=== PATIENT | male | born 1985 | race Caucasian/White ===

== ENCOUNTER 2021-04-27 07:40 | Inpatient (IN) ==
[2021-04-27 08:29] LABS: Basophils # 0.1 K/mcL (0.0-0.2); Basophils % 0.5 %; Eosinophils # 0.2 K/mcL (0.0-0.6); Hematocrit 42.8 % (37.5-50.1); Hemoglobin 14.4 g/dL (12.9-16.9); Immature Granulocytes % 0.6 % (0-4); Lymphocytes % 14.9 %; Mean Corpuscular HGB Conc 33.6 g/dL (31.6-35.5); Mean Corpuscular Hemoglobin 32.5 pg (28.0-33.3); Mean Corpuscular Volume 96.6 fL (83.0-100.0); Mean Platelet Volume 9.3 fL (9.4-12.4); Monocytes # 1.1 K/mcL (0.0-1.3); Monocytes % 5.3 %; Neutrophils # 15.9 K/mcL (1.6-8.9); Platelet Count 295 K/mcL (140-400); Red Blood Count 4.43 M/mcL (4.19-5.50); Red Cell Distribution Width 12.7 % (11.5-14.5); Segmented Neutrophils % 77.7 %; White Blood Count 20.4 K/mcL (4.3-11.1)
[2021-04-27 08:37] LABS: Bilirubin,Urine Negative (Negative); Blood,Urine Negative (Negative); Clarity,Urine Clear (Clear); Color,Urine Light-Yellow (Yellow); Glucose,Urine (UA) Normal (Normal); Ketones,Urine Negative (Negative); Leukocyte Esterase,Urine Negative (Negative); Nitrite,Urine Negative (Negative); Protein,Urine Negative (Neg-Trace); Urobilinogen,Urine Normal (Normal)
[2021-04-27 08:41] LABS: Acetaminophen < 10 mcg/mL (10-20); BUN/Creatinine Ratio 9 (6-26); Blood Urea Nitrogen 9 mg/dL (6-20); Calcium 9.3 mg/dL (8.6-10.3); Carbon Dioxide 29 mEq/L (23-29); Chloride 103 mEq/L (98-107); Chol/HDL Ratio 4.7 (0-4.9); Cholesterol 182 mg/dL (< 200); Glucose 112 mg/dL (70-105); HDL Cholesterol 39 mg/dL (40-59); LDL Cholesterol,Calculated 127 mg/dL (< 100); Osmolality,Calculated 287 (280-300); Potassium 3.7 mEq/L (3.5-5.1); Salicylate < 2.5 mg/dL (15.0-30.0); Sodium 139 mEq/L (136-145); Triglycerides 78 mg/dL (< 150); eGFR For African Americans > 60 (> 60); eGFR For Non-African Americans > 60 (> 60)
[2021-04-27 08:58] LABS: Amphetamine Screen,Urine Negative ng/mL (Cutoff=1000); Barbiturate Screen,Urine Negative ng/mL (Cutoff=200)
[2021-04-27 09:00] LABS: Benzodiazepines Screen,Urine Negative ng/mL (Cutoff=300); Cannabinoid Screen,Urine Positive ng/mL (Cutoff = 50); Cocaine Screen,Urine Negative ng/mL (Cutoff= 300); Opiate Screen,Urine Negative ng/mL (Cutoff=300); Phencyclidine Screen,Urine Negative ng/mL (Cutoff=25)
[2021-04-27] MEDS ORDERED: Nicotine 21 MG PATCH.TD24 TD ONE (09:39)
[2021-04-27 10:18] LABS: Ethanol < 10 mg/dL (Less than 10)
[2021-04-27] MEDS ORDERED: 0.9 % Sodium Chloride 1,000 ML IVC ONE (10:48)
[2021-04-27 12:04] LABS: Estimated Average Glucose 117 mg/dl; Hemoglobin A1C 5.7 %
[2021-04-27 13:15] LABS: Basophils # 0.1 K/mcL (0.0-0.2); Basophils % 0.5 %; Eosinophils # 0.1 K/mcL (0.0-0.6); Eosinophils % 0.8 %; Immature Granulocytes % 0.6 % (0-4); Lymphocytes # 2.5 K/mcL (0.6-4.6); Lymphocytes % 19.2 %; Mean Corpuscular HGB Conc 34.2 g/dL (31.6-35.5); Mean Corpuscular Hemoglobin 33.1 pg (28.0-33.3); Mean Corpuscular Volume 96.7 fL (83.0-100.0); Mean Platelet Volume 9.4 fL (9.4-12.4); Monocytes # 0.6 K/mcL (0.0-1.3); Monocytes % 4.9 %; Neutrophils # 9.5 K/mcL (1.6-8.9); Platelet Count 265 K/mcL (140-400); Red Blood Count 3.93 M/mcL (4.19-5.50); Red Cell Distribution Width 12.8 % (11.5-14.5); White Blood Count 12.8 K/mcL (4.3-11.1)
[2021-04-27] MEDS ORDERED: Isovue-370 500 ML BOTTLE IVP ONE (13:43)
[2021-04-27] MEDS ORDERED: 0.9 % Sodium Chloride 1,000 ML IV ONE (15:51)
[2021-04-27] MEDS ORDERED: 0.9 % Sodium Chloride 1,000 ML ONE (15:52)
[2021-04-27 20:25] LABS: Adenovirus Not Detected (Not Detect); Bordetella Pertussis Not Detected (Not Detect); Chlamydophila pneumoniae Not Detected (Not Detect); Coronavirus 229E Not Detected (Not Detect); Coronavirus HKU1 Not Detected (Not Detect); Coronavirus NL63 Not Detected (Not Detect); Coronavirus OC43 Not Detected (Not Detect); Human Metapneumovirus Not Detected (Not Detect); Human Rhinovirus/Enterovirus Not Detected (Not Detect); Influenza A Subtype 2009 H1 Not Detected (Not Detect); Influenza B Not Detected (Not Detect); Mycoplasma pneumoniae Not Detected (Not Detect); Parainfluenza Virus 1 Not Detected (Not Detect); Parainfluenza Virus 2 Not Detected (Not Detect); Parainfluenza Virus 3 Not Detected (Not Detect); Parainfluenza Virus 4 Not Detected (Not Detect); Respiratory Syncytial Virus Not Detected (Not Detect); SARS-CoV-2 Not Detected (Not Detect)
[2021-04-27] MEDS ORDERED: Haloperidol Lactate 5 MG/ML VIAL IM PRN (20:41)
[2021-04-27] MEDS ORDERED: *HR* LORazepam 2 MG/ML VIAL IM PRN (20:41)
[2021-04-27] MEDS ORDERED: hydrOXYzine pamoate 25 MG CAPSULE PO PRN (21:16)
[2021-04-27] MEDS: QUEtiapine Fumarate 25 MG TABLET PO PRN (21:25)
[2021-04-27] MEDS: OLANZapine 10 MG TAB.RAPDIS PO SCH (21:25)
[2021-04-27] MEDS: Divalproex (12 HR) 500 MG TABLET PO SCH (21:25)
[2021-04-27] MEDS: Acetaminophen 325 MG TABLET PO PRN (21:27)
[2021-04-28] MEDS: Divalproex (12 HR) 500 MG TABLET PO SCH ×2 (08:16→20:21)
[2021-04-28] MEDS ORDERED: Mag Hydrox/Al Hydrox/Simeth 30 ML UDC PO PRN (10:02)
[2021-04-28] MEDS ORDERED: MOM Conc 10 ML UD.LIQ PO PRN (10:02)
[2021-04-28] MEDS: Nicotine 21 MG PATCH.TD24 TD SCH (11:07)
[2021-04-28] MEDS: hydrOXYzine pamoate 25 MG CAPSULE PO PRN ×2 (11:29→18:41)
[2021-04-28] MEDS ORDERED: OLANZapine 5 MG TAB.RAPDIS PO ONE (12:22)
[2021-04-28] MEDS: OLANZapine 10 MG TAB.RAPDIS PO SCH (20:20)
[2021-04-29] MEDS: Divalproex (12 HR) 500 MG TABLET PO SCH ×2 (08:36→20:57)
[2021-04-29] MEDS: Nicotine 21 MG PATCH.TD24 TD SCH (08:36)
[2021-04-29] MEDS: hydrOXYzine pamoate 25 MG CAPSULE PO PRN (08:42)
[2021-04-29] MEDS: *HR* LORazepam 1 MG TABLET PO PRN ×2 (10:52→16:24)
[2021-04-29] MEDS: haloperidoL 5 MG TABLET PO PRN ×2 (10:52→16:24)
[2021-04-29] MEDS: Divalproex (12 HR) 250 MG TABLET PO SCH (20:57)
[2021-04-29] MEDS: OLANZapine 10 MG TAB.RAPDIS PO SCH ×2 (20:58)
[2021-04-30] MEDS: Nicotine 21 MG PATCH.TD24 TD SCH (08:06)
[2021-04-30] MEDS: Divalproex (12 HR) 500 MG TABLET PO SCH ×2 (08:06→20:42)
[2021-04-30] MEDS: hydrOXYzine pamoate 25 MG CAPSULE PO PRN ×3 (08:09→20:42)
[2021-04-30] MEDS: haloperidoL 5 MG TABLET PO PRN (08:55)
[2021-04-30] MEDS: *HR* LORazepam 1 MG TABLET PO PRN (08:55)
[2021-04-30] MEDS: OLANZapine 10 MG TAB.RAPDIS PO SCH ×2 (20:41)
[2021-04-30] MEDS: Divalproex (12 HR) 250 MG TABLET PO SCH (20:41)
[2021-04-30] MEDS: *HR* LORazepam 1 MG TABLET PO SCH (20:42)
[2021-04-30] MEDS: QUEtiapine Fumarate 25 MG TABLET PO PRN (20:42)
[2021-05-01] MEDS: Nicotine 21 MG PATCH.TD24 TD SCH (08:44)
[2021-05-01] MEDS: Divalproex (12 HR) 500 MG TABLET PO SCH (08:47)
[2021-05-01] MEDS: *HR* LORazepam 1 MG TABLET PO SCH (08:47)
[2021-05-01 08:55] VITALS: BP 146/70; PULSE 97; TEMP 98.3; O2SAT 97
[2021-05-01] MEDS: Acetaminophen 325 MG TABLET PO PRN (09:46)
== END 2021-05-01 10:00 | disposition home or self-care (01) | DRG 750 ==
LOC: EMEROOARM 07:40 → 1ANU 20:37
PROVIDERS: ADMIT Psychiatry & Neurology Psychiatry; ATTEND Psychiatry & Neurology Psychiatry

== ENCOUNTER 2021-05-19 09:26 | Inpatient (IN) ==
[2021-05-19 10:34] LABS: Basophils # 0.1 K/mcL (0.0-0.2); Basophils % 0.6 %; Eosinophils # 0.1 K/mcL (0.0-0.6); Eosinophils % 1.4 %; Hematocrit 40.1 % (37.5-50.1); Hemoglobin 13.6 g/dL (12.9-16.9); Immature Granulocytes % 0.6 % (0-4); Lymphocytes # 2.8 K/mcL (0.6-4.6); Lymphocytes % 29.4 %; Mean Corpuscular HGB Conc 33.9 g/dL (31.6-35.5); Mean Corpuscular Hemoglobin 32.5 pg (28.0-33.3); Mean Corpuscular Volume 95.9 fL (83.0-100.0); Mean Platelet Volume 9.4 fL (9.4-12.4); Monocytes # 0.7 K/mcL (0.0-1.3); Monocytes % 7.6 %; Neutrophils # 5.7 K/mcL (1.6-8.9); Platelet Count 257 K/mcL (140-400); Red Blood Count 4.18 M/mcL (4.19-5.50); Red Cell Distribution Width 12.4 % (11.5-14.5); Segmented Neutrophils % 60.4 %; White Blood Count 9.5 K/mcL (4.3-11.1)
[2021-05-19 11:04] LABS: Acetaminophen < 10 mcg/mL (10-20); BUN/Creatinine Ratio 10 (6-26); Blood Urea Nitrogen 10 mg/dL (6-20); Calcium 9.1 mg/dL (8.6-10.3); Carbon Dioxide 29 mEq/L (23-29); Chloride 101 mEq/L (98-107); Ethanol < 10 mg/dL (Less than 10); Glucose 88 mg/dL (70-105); Osmolality,Calculated 282 (280-300); Potassium 3.6 mEq/L (3.5-5.1); Salicylate < 2.5 mg/dL (15.0-30.0); Sodium 137 mEq/L (136-145); eGFR For African Americans > 60 (> 60); eGFR For Non-African Americans > 60 (> 60)
[2021-05-19 12:14] LABS: Bilirubin,Urine Negative (Negative); Blood,Urine Negative (Negative); Clarity,Urine Clear (Clear); Color,Urine Colorless (Yellow); Glucose,Urine (UA) Normal (Normal); Ketones,Urine Negative (Negative); Leukocyte Esterase,Urine Negative (Negative); Nitrite,Urine Negative (Negative); PH,Urine 6.5 pH Units (5.0-8.0); Protein,Urine Negative (Neg-Trace); Specific Gravity,Urine 1.005 (1.010-1.025); Urobilinogen,Urine Normal (Normal)
[2021-05-19 12:28] LABS: Amphetamine Screen,Urine Negative ng/mL (Cutoff=1000); Barbiturate Screen,Urine Negative ng/mL (Cutoff=200); Benzodiazepines Screen,Urine Negative ng/mL (Cutoff=200); Cannabinoid Screen,Urine Positive ng/mL (Cutoff = 50); Cocaine Screen,Urine Negative ng/mL (Cutoff= 300); Opiate Screen,Urine Negative ng/mL (Cutoff=300); Phencyclidine Screen,Urine Negative ng/mL (Cutoff=25)
[2021-05-19 12:54] LABS: Influenza A PCR Negative (Negative); Influenza B PCR Negative (Negative); Resp. Syncytial Virus PCR Negative (Negative)
[2021-05-19 13:09] LABS: SARS-CoV-2 by PCR (In House) Negative (Negative)
[2021-05-19] MEDS ORDERED: *HR* LORazepam 1 MG TABLET PO ONE (16:25)
[2021-05-19] MEDS ORDERED: Haloperidol Lactate 5 MG/ML VIAL IM PRN (19:29)
[2021-05-19] MEDS ORDERED: haloperidoL 5 MG TABLET PO PRN (19:29)
[2021-05-19] MEDS ORDERED: *HR* LORazepam 2 MG/ML VIAL IM PRN (19:29)
[2021-05-19] MEDS ORDERED: *HR* LORazepam 1 MG TABLET PO PRN (19:29)
[2021-05-19] MEDS ORDERED: Divalproex (12 HR) 250 MG TABLET PO SCH (21:00)
[2021-05-19] MEDS: *HR* LORazepam 1 MG TABLET PO SCH (21:04)
[2021-05-19] MEDS: traZODone 50 MG TABLET PO PRN (21:05)
[2021-05-19] MEDS: OLANZapine 10 MG TAB.RAPDIS PO SCH (21:05)
[2021-05-20] MEDS: *HR* LORazepam 1 MG TABLET PO SCH (08:52)
[2021-05-20] MEDS: Nicotine 21 MG PATCH.TD24 TD SCH (08:53)
[2021-05-20] MEDS: Divalproex (12 HR) 250 MG TABLET PO SCH ×2 (12:32→21:22)
[2021-05-20] MEDS ORDERED: Mag Hydrox/Al Hydrox/Simeth 30 ML UDC PO PRN (12:38)
[2021-05-20] MEDS ORDERED: MOM Conc 10 ML UD.LIQ PO PRN (12:38)
[2021-05-20] MEDS: diazePAM 5 MG TABLET PO SCH (21:22)
[2021-05-20] MEDS: OLANZapine 10 MG TAB.RAPDIS PO SCH (21:22)
[2021-05-21] MEDS: Acetaminophen 325 MG TABLET PO PRN (05:54)
[2021-05-21] MEDS: hydrOXYzine pamoate 25 MG CAPSULE PO PRN ×5 (05:54→18:57)
[2021-05-21] MEDS: Nicotine 21 MG PATCH.TD24 TD SCH (08:37)
[2021-05-21] MEDS: Divalproex (12 HR) 250 MG TABLET PO SCH (08:38)
[2021-05-21] MEDS: diazePAM 5 MG TABLET PO SCH ×2 (08:39→19:57)
[2021-05-21] MEDS: Divalproex (12 HR) 500 MG TABLET PO SCH (19:57)
[2021-05-21] MEDS: traZODone 50 MG TABLET PO PRN (19:57)
[2021-05-21] MEDS: OLANZapine 10 MG TAB.RAPDIS PO SCH (19:57)
[2021-05-22] MEDS: Nicotine 21 MG PATCH.TD24 TD SCH (08:18)
[2021-05-22] MEDS: diazePAM 5 MG TABLET PO SCH ×2 (08:18→20:02)
[2021-05-22] MEDS: OLANZapine 5 MG TAB.RAPDIS PO SCH (08:18)
[2021-05-22] MEDS: Divalproex (12 HR) 500 MG TABLET PO SCH ×2 (08:44→20:02)
[2021-05-22] MEDS: hydrOXYzine pamoate 25 MG CAPSULE PO PRN ×3 (12:07→20:02)
[2021-05-22] MEDS: traZODone 50 MG TABLET PO PRN (20:02)
[2021-05-22] MEDS: OLANZapine 10 MG TAB.RAPDIS PO SCH (20:02)
[2021-05-23] MEDS: OLANZapine 5 MG TAB.RAPDIS PO SCH (08:09)
[2021-05-23] MEDS: Divalproex (12 HR) 500 MG TABLET PO SCH ×2 (08:09→20:20)
[2021-05-23] MEDS: Nicotine 21 MG PATCH.TD24 TD SCH (08:09)
[2021-05-23] MEDS: diazePAM 5 MG TABLET PO SCH ×2 (08:10→20:20)
[2021-05-23] MEDS: hydrOXYzine pamoate 25 MG CAPSULE PO PRN ×3 (08:10→20:20)
[2021-05-23] MEDS: traZODone 50 MG TABLET PO PRN (20:20)
[2021-05-23] MEDS: OLANZapine 10 MG TAB.RAPDIS PO SCH (20:20)
[2021-05-24] MEDS: OLANZapine 5 MG TAB.RAPDIS PO SCH (08:25)
[2021-05-24] MEDS: Divalproex (12 HR) 500 MG TABLET PO SCH ×2 (08:25→20:05)
[2021-05-24] MEDS: diazePAM 5 MG TABLET PO SCH ×2 (08:26→20:05)
[2021-05-24] MEDS: Nicotine 21 MG PATCH.TD24 TD SCH (08:26)
[2021-05-24] MEDS: hydrOXYzine pamoate 25 MG CAPSULE PO PRN ×2 (14:57→20:06)
[2021-05-24] MEDS: traZODone 50 MG TABLET PO PRN (20:06)
[2021-05-24] MEDS: OLANZapine 10 MG TAB.RAPDIS PO SCH (20:06)
[2021-05-25] MEDS: diazePAM 5 MG TABLET PO SCH ×2 (08:30→20:04)
[2021-05-25] MEDS: Divalproex (12 HR) 500 MG TABLET PO SCH ×2 (08:31→20:04)
[2021-05-25] MEDS: hydrOXYzine pamoate 25 MG CAPSULE PO PRN ×3 (08:31→20:08)
[2021-05-25] MEDS: OLANZapine 5 MG TAB.RAPDIS PO SCH (08:31)
[2021-05-25] MEDS: Nicotine 21 MG PATCH.TD24 TD SCH (08:31)
[2021-05-25] MEDS: traZODone 50 MG TABLET PO PRN (20:04)
[2021-05-25] MEDS: OLANZapine 10 MG TAB.RAPDIS PO SCH (20:04)
[2021-05-25] MEDS: Acetaminophen 325 MG TABLET PO PRN (20:05)
[2021-05-26] MEDS: Nicotine 21 MG PATCH.TD24 TD SCH (09:36)
[2021-05-26] MEDS: diazePAM 5 MG TABLET PO SCH ×2 (09:37→20:31)
[2021-05-26] MEDS: Divalproex (12 HR) 500 MG TABLET PO SCH ×2 (09:37→20:31)
[2021-05-26] MEDS: OLANZapine 5 MG TAB.RAPDIS PO SCH (09:37)
[2021-05-26] MEDS: hydrOXYzine pamoate 25 MG CAPSULE PO PRN ×3 (09:41→20:33)
[2021-05-26] MEDS: OLANZapine 10 MG TAB.RAPDIS PO SCH (20:31)
[2021-05-26] MEDS: Acetaminophen 325 MG TABLET PO PRN (20:32)
[2021-05-26] MEDS: traZODone 50 MG TABLET PO PRN (20:33)
[2021-05-27] MEDS: OLANZapine 5 MG TAB.RAPDIS PO SCH (08:37)
[2021-05-27] MEDS: hydrOXYzine pamoate 25 MG CAPSULE PO PRN ×3 (08:38→20:49)
[2021-05-27] MEDS: diazePAM 5 MG TABLET PO SCH ×2 (08:38→20:50)
[2021-05-27] MEDS: Nicotine 21 MG PATCH.TD24 TD SCH (08:38)
[2021-05-27] MEDS: Divalproex (12 HR) 500 MG TABLET PO SCH ×2 (08:38→20:49)
[2021-05-27] MEDS: OLANZapine 10 MG TAB.RAPDIS PO SCH (20:49)
[2021-05-27] MEDS: Acetaminophen 325 MG TABLET PO PRN (20:50)
[2021-05-27] MEDS ORDERED: Mirtazapine 15 MG TABLET PO SCH (21:00)
[2021-05-28] MEDS: Nicotine 21 MG PATCH.TD24 TD SCH (08:45)
[2021-05-28] MEDS: Divalproex (12 HR) 500 MG TABLET PO SCH ×2 (08:46→20:03)
[2021-05-28] MEDS: diazePAM 2 MG TABLET PO SCH (08:46)
[2021-05-28] MEDS: OLANZapine 5 MG TAB.RAPDIS PO SCH (08:46)
[2021-05-28] MEDS: hydrOXYzine pamoate 25 MG CAPSULE PO PRN ×3 (08:50→20:02)
[2021-05-28] MEDS: diazePAM 5 MG TABLET PO SCH (20:02)
[2021-05-28] MEDS: Mirtazapine 15 MG TABLET PO SCH (20:03)
[2021-05-28] MEDS: OLANZapine 10 MG TAB.RAPDIS PO SCH (20:03)
[2021-05-28] MEDS: Acetaminophen 325 MG TABLET PO PRN (20:03)
[2021-05-29] MEDS: Nicotine 21 MG PATCH.TD24 TD SCH (08:07)
[2021-05-29] MEDS: Divalproex (12 HR) 500 MG TABLET PO SCH ×2 (08:07→20:01)
[2021-05-29] MEDS: diazePAM 2 MG TABLET PO SCH (08:07)
[2021-05-29] MEDS: OLANZapine 5 MG TAB.RAPDIS PO SCH (08:07)
[2021-05-29] MEDS: hydrOXYzine pamoate 25 MG CAPSULE PO PRN ×3 (08:11→20:02)
[2021-05-29] MEDS ORDERED: FLU Vac QV 21-22 (6Month+)/PF 0.5 ML SYRINGE IM ONE (12:18)
[2021-05-29] MEDS: Mirtazapine 15 MG TABLET PO SCH (20:01)
[2021-05-29] MEDS: OLANZapine 10 MG TAB.RAPDIS PO SCH (20:01)
[2021-05-29] MEDS: Acetaminophen 325 MG TABLET PO PRN (20:02)
[2021-05-29] MEDS ORDERED: diazePAM 2 MG TABLET PO SCH (21:00)
[2021-05-30] MEDS: OLANZapine 5 MG TAB.RAPDIS PO SCH (08:33)
[2021-05-30] MEDS: Nicotine 21 MG PATCH.TD24 TD SCH (08:33)
[2021-05-30] MEDS: diazePAM 2 MG TABLET PO SCH (08:34)
[2021-05-30] MEDS: Divalproex (12 HR) 500 MG TABLET PO SCH ×2 (08:34→20:10)
[2021-05-30] MEDS: hydrOXYzine pamoate 25 MG CAPSULE PO PRN ×3 (08:34→20:10)
[2021-05-30] MEDS ORDERED: diazePAM 2 MG TABLET PO SCH (08:42)
[2021-05-30] MEDS: Acetaminophen 325 MG TABLET PO PRN (20:09)
[2021-05-30] MEDS: Mirtazapine 15 MG TABLET PO SCH (20:10)
[2021-05-30] MEDS: OLANZapine 10 MG TAB.RAPDIS PO SCH (20:11)
[2021-05-30] MEDS ORDERED: Mirtazapine 15 MG TABLET PO SCH (21:00)
[2021-05-31] MEDS: Nicotine 21 MG PATCH.TD24 TD SCH (08:36)
[2021-05-31] MEDS: Divalproex (12 HR) 500 MG TABLET PO SCH (08:37)
[2021-05-31] MEDS: OLANZapine 5 MG TAB.RAPDIS PO SCH (08:37)
[2021-05-31 08:48] VITALS: BP 115/69; PULSE 84; TEMP 98; O2SAT 99
[2021-05-31] MEDS: hydrOXYzine pamoate 25 MG CAPSULE PO PRN ×2 (09:30→14:07)
[2021-05-31 15:43] LABS: Adenovirus Not Detected (Not Detect); Bordetella Pertussis Not Detected (Not Detect); Chlamydophila pneumoniae Not Detected (Not Detect); Coronavirus 229E Not Detected (Not Detect); Coronavirus HKU1 Not Detected (Not Detect); Coronavirus NL63 Not Detected (Not Detect); Coronavirus OC43 Not Detected (Not Detect); Human Metapneumovirus Not Detected (Not Detect); Human Rhinovirus/Enterovirus Not Detected (Not Detect); Influenza A Subtype 2009 H1 Not Detected (Not Detect); Influenza B Not Detected (Not Detect); Mycoplasma pneumoniae Not Detected (Not Detect); Parainfluenza Virus 1 Not Detected (Not Detect); Parainfluenza Virus 2 Not Detected (Not Detect); Parainfluenza Virus 3 Not Detected (Not Detect); Parainfluenza Virus 4 Not Detected (Not Detect); Respiratory Syncytial Virus Not Detected (Not Detect); SARS-CoV-2 Not Detected (Not Detect)
== END 2021-05-31 16:15 | DRG 750 ==
LOC: EMEROOARM 09:26 → 1ANU 19:18
PROVIDERS: ADMIT Psychiatry & Neurology Psychiatry; ATTEND Psychiatry & Neurology Psychiatry